=== PATIENT | female | born 1930 | race Caucasian/White ===

== ENCOUNTER 2017-02-04 09:49 | Emergency (ER) | payer OTHER ==
[~2017-02-04] VITALS: Ht 162.6 cm; Wt 54.4 kg
[2017-02-04 10:08] VITALS: BP 153/97
--- NOTE | 2017-02-04 10:24 | PHYS DOC ---
Past Medical History Past Medical History: Anxiety Past Surgical History: Hysterectomy, Other Additional Past Surgical Histo: PARTIAL THYROIDECTOMY, 2 L BREAST BIOPSIES Alcohol Use: Occasionally Drug Use: None Adult General Chief Complaint Chief Complaint: HIP PAIN [facility] HPI Patient is a 87 year old female presenting to the emergency department for evaluation of right hip pain status post fall on January 23. Patient said that she got her right leg stuck in the door and then lost her balance and fell on her right hip. She says it hurts on her lateral hip and it goes into her left medial thigh and that she is able to walk on it however it hurts to do so. The pain increases throughout the day as she starts a day off well walking well with IV in the day she has severe pain. She says that she took Aleve prior to coming in now she has no pain. She denies any other areas of pain and she denies any unilateral weakness numbness tingling she has no back pain. She is in no obvious distress with normal vital signs. Review of Systems Review of Systems Constitutional: Denies fever or chills [] Eyes: Denies change in visual acuity, redness, or eye pain [] HENT: Denies nasal congestion or sore throat [] Respiratory: Denies cough or shortness of breath [] Cardiovascular: No additional information not addressed in HPI [] GI: Denies abdominal pain, nausea, vomiting, bloody stools or diarrhea [] : Denies dysuria or hematuria [] Musculoskeletal: Denies back pain. + R hip joint pain [] Integument: Denies rash or skin lesions [] Neurologic: Denies headache, focal weakness or sensory changes [] Allergies Allergies Allergies Coded Allergies Type Severity Reaction Last Updated Verified No Known Drug Allergies 02/04/17 No Physical Exam Physical Exam Constitutional: Well developed, well nourished, no acute distress, non-toxic appearance. [] HENT: Normocephalic, atraumatic, bilateral external ears normal, oropharynx moist, no oral exudates, nose normal. [] Eyes: PERRLA, EOMI, conjunctiva normal, no discharge. [] Neck: Normal range of motion, no tenderness, supple, no stridor. [] Cardiovascular:Heart rate regular rhythm, no murmur [] Lungs & Thorax: Bilateral breath sounds clear to auscultation [] Abdomen: Bowel sounds normal, soft, no tenderness, no masses, no pulsatile masses. [] Skin: Warm, dry, no erythema, no rash. [] Back: No tenderness, no CVA tenderness. [] Extremities: Full range of motion of right hip with minimal pain however she has pain to palpation on the lateral aspect of her hip and also on the superior medial femur and pelvis. Neurologic: Alert and oriented X 3, normal motor function, normal sensory function, no focal deficits noted. [] Current Patient Data Vital Signs Vital Signs Date Time Temp Pulse Resp B/P (MAP) Pulse Ox O2 Delivery O2 Flow Rate FiO2 02/04/17 10:08 98.3 95 20 153/97 (115) 97 Room Air 98.3 EKG EKG [] Radiology/Procedures Radiology/Procedures [] Course & Med Decision Making Course & Med Decision Making Highly doubt hip fracture however pelvis fracture is a consideration. Surprisingly patient has a right femoral neck fracture. Patient is ambulatory on it and she is very adamant that she does not want surgery. I told her she may suffer severe complications and worsening pain and worsening mobility. Patient says that she does not care and she wants to be discharged. I spoke to Dr. Ramires and he agreed with weightbearing as tolerated and stay out of it as much as she can and to follow with him next week and come back to the ER if she changes her mind. Patient aware and agreeable with plan for discharge and verbalized understanding of the need for short-term follow-up and strict ER return precautions discussed and clear worsening pain fevers vomiting or other general concerns. Dragon Disclaimer Dragon Disclaimer This electronic medical record was generated, in whole or in part, using a voice recognition dictation system. Departure Departure Impression: Primary Impression: Fracture of femoral neck Disposition: 01 HOME, SELF-CARE Condition: GOOD Referrals: MIKKI RAMIRES II, MD Patient Instructions: Hip Fracture-SportsMed Scripts Tramadol Hcl (TRAMADOL HCL) 50 Mg Tablet 1 TAB PO PRN Q6HRS, #30 TAB Prov: NGOZI BEDOYA DO 02/04/17 Problem Qualifiers Primary Impression: Fracture of femoral neck Encounter type: initial encounter Fracture type: closed Laterality: right Qualified Codes: S72.001A - Fracture of unspecified part of neck of right femur, initial encounter for closed fracture NGOZI BEDOYA DO Feb 04, 2017 10:23
--- NOTE | 2017-02-04 11:13 | RAD ---
Pelvis with right hip, 3 views, 02/04/2017: History: Fall, pain There is a subcapital fracture of the right femoral neck. There is mild lateral and proximal displacement of the distal fracture fragment. The right femoral head is seated within the acetabulum. The hip joints are fairly well-maintained. No acute pelvic fracture is seen. There are scattered vascular calcifications. IMPRESSION: Acute subcapital fracture of the right femoral neck.
--- NOTE | 2017-02-04 11:16 | RAD ---
Portable chest, 02/04/2017: History: Preop evaluation, hip fracture The heart size is normal. There is a retrocardiac density with lateral bowing of the azygoesophageal stripe, most commonly due to a hiatal hernia. There is calcific plaquing of the aorta. The pulmonary markings are prominent bilaterally, probably due to fibrosis. A component of interstitial edema is less likely. There is no evidence of pleural fluid or pneumothorax. IMPRESSION: 1. Prominent pulmonary markings suggesting fibrosis. 2. Small retrocardiac mass, most likely representing a hiatal hernia.
[2017-02-04] MEDS ORDERED: TRAM50TA PO (11:17)
== END 2017-02-04 11:48 | disposition home or self-care (01) ==
LOC: ER 09:49
DX: S72.001A Fracture of unspecified part of neck of right femur, initial encounter for closed fracture (principal); W01.190A Fall on same level from slipping, tripping and stumbling with subsequent striking against furniture, initial encounter; Y93.89 Activity, other specified; Y92.89 Other specified places as the place of occurrence of the external cause; Y99.8 Other external cause status; Z90.710 Acquired absence of both cervix and uterus
CPT/HCPCS: 71010; 73502; 99284

== ENCOUNTER 2017-02-07 14:51 | Emergency (ER) | payer OTHER ==
[~2017-02-07] VITALS: Ht 162.6 cm; Wt 53.5 kg
[~2017-02-07 14:51] MED LIST: TRAM50TA PO
--- NOTE | 2017-02-07 15:23 | PHYS DOC ---
Past Medical History Past Medical History: Anxiety Past Surgical History: Hysterectomy, Other Additional Past Surgical Histo: PARTIAL THYROIDECTOMY, 2 L BREAST BIOPSIES Alcohol Use: Occasionally Drug Use: None Adult General Chief Complaint Chief Complaint: HIP PAIN [facility] Patient is a 87 year old female brought in by EMS for evaluation of right leg swelling. I saw her several days ago for her right hip fracture when she refused surgery. Patient has trace edema on the right leg and she is concerned about a blood clot. Patient says that she is still ambulating on her right hip and EMS did confirm that she was able to put weight on it. Review of Systems Review of Systems Constitutional: Denies fever or chills [] Cardiovascular: No additional information not addressed in HPI [] GI: Denies abdominal pain, nausea, vomiting, bloody stools or diarrhea [] : Denies dysuria or hematuria [] Musculoskeletal: Denies back pain. Positive right hip joint pain Integument: Denies rash or skin lesions [] Allergies Allergies Allergies Coded Allergies Type Severity Reaction Last Updated Verified No Known Drug Allergies 02/04/17 No Physical Exam Physical Exam Constitutional: Well developed, well nourished, no acute distress, non-toxic appearance. [] Cardiovascular:Heart rate regular rhythm, no murmur [] Lungs & Thorax: Bilateral breath sounds clear to auscultation [] Abdomen: Bowel sounds normal, soft, no tenderness, no masses, no pulsatile masses. [] Skin: Warm, dry, no erythema, no rash. [] Back: No tenderness, no CVA tenderness. [] Extremities: No tenderness, no cyanosis, no clubbing, ROM intact. Trace pedal edema on right lower extremity. Current Patient Data Vital Signs Vital Signs Date Time Temp Pulse Resp B/P (MAP) Pulse Ox O2 Delivery O2 Flow Rate FiO2 02/07/17 15:44 92 24 129/55 (79) 96 Room Air 02/07/17 15:00 98.4 98.4 EKG EKG [] Radiology/Procedures Radiology/Procedures [] Course & Med Decision Making Course & Med Decision Making I offered to admit her for surgical fixation of her hip and/or rehabilitation and she is going to consider a while awaiting test results. Ultrasound negative and she has normal pulses with intact sensation so she'll be discharged in stable condition and told to keep her orthopedic follow-up on . Patient aware and agreeable with plan and verbalized understanding of the need for follow-up and strict ER return precautions discussed worsening pain weakness or other general concerns. Dragon Disclaimer Dragon Disclaimer This electronic medical record was generated, in whole or in part, using a voice recognition dictation system. Departure Departure Impression: Primary Impression: Edema Additional Impression: Hip fracture Disposition: HOME, SELF-CARE Condition: GOOD Referrals: CUBA HUERTA MD (PCP) Patient Instructions: Peripheral Edema Problem Qualifiers Primary Impression: Edema Edema type: localized Qualified Codes: R60.0 - Localized edema NGOZI BEDOYA DO Feb 07, 2017 15:23
--- NOTE | 2017-02-07 16:16 | RAD ---
Clinical Indication: Right lower extremity pain, swelling. Fall. Technique: Study is dated February 07, 2017. Grayscale, color flow and spectral waveform analysis was performed of the right lower extremity with and without compression. Findings: There is normal compressibility of all visualized vein segments. No evidence of DVT is present on grayscale or color images. There is normal phasicity of waveform. There is normal augmentation. No hematoma is apparent. Impression: No evidence of deep vein thrombosis.
[2017-02-07 16:41] VITALS: BP 134/62
== END 2017-02-07 16:43 | disposition home or self-care (01) ==
LOC: ER 14:51
DX: R60.0 Localized edema (principal); S72.001G Fracture of unspecified part of neck of right femur, subsequent encounter for closed fracture with delayed healing; X58.XXXD Exposure to other specified factors, subsequent encounter; Z90.710 Acquired absence of both cervix and uterus
CPT/HCPCS: 93971; 99284-25